=== PATIENT | female | born 1940 | race Caucasian/White ===

== ENCOUNTER 2017-05-27 10:28 | Emergency (ER) | payer MEDICARE, BC ==
[~2017-05-27] VITALS: Ht 162.6 cm; Wt 113.4 kg
[~2017-05-27 10:28] MED LIST: ACCUVITE; ASPIRIN81 M2 PO; CALCIUM 600 +1 EAC1 PO; DIFLUCAN150 MG PO; EVISTA PO; FISH OIL 1,0001 EAC5 PO; FISH OIL 1,001000 MG PO; GARLIC OIL3 MG PO; LEVAQUIN 500 M500 M2 PO; LOTREL 10-20 M1 EACH PO; MSM PO; NEPHROCAPS SOFT1 CAP PO; NORCO 5-325 TA1 EACH PO; NORCO 7.5-3251 EACH; NYSTATIN-TRIAMC15 G1 TP; PLAVIX 75 MG TA75 M1; TURMERIC500 M1 PO; VITAMIN D PO; ZOFRAN 4 MG ORAL4 M1 DIS; ZOFRAN ODT4 MG PO; occuvite PO
[2017-05-27] MEDS ORDERED: TOBRAMYCIN SULFA5 M1 OPHTHALMIC (11:08)
[2017-05-27 11:31] VITALS: BP 154/84
== END 2017-05-27 11:34 | disposition home or self-care (01) ==
LOC: M.ERS 10:28
DX: H10.9 Unspecified conjunctivitis (principal); I10 Essential (primary) hypertension; M41.9 Scoliosis, unspecified; Z86.73 Personal history of transient ischemic attack (TIA), and cerebral infarction without residual deficits; Z87.442 Personal history of urinary calculi; Z90.89 Acquired absence of other organs; Z98.890 Other specified postprocedural states; Z88.6 Allergy status to analgesic agent; Z88.8 Allergy status to other drugs, medicaments and biological substances

== ENCOUNTER → 2017-09-28 | Outpatient (CLI) | payer MEDICARE, BC ==
[~2017-09-28] MED LIST changes: +TOBRAMYCIN SULFA5 M1 OPHTHALMIC
[2017-09-28 11:17] LABS: ABSOLUTE BASOPHILS 0.1 thou/uL (0.0-0.2); ABSOLUTE EOSINOPHILS 0.4 thou/uL (0.0-0.7); ABSOLUTE LYMPHOCYTES 2.4 thou/uL (0.8-5.3); ABSOLUTE MONOCYTES 0.6 thou/uL (0.0-1.2); ABSOLUTE NEUTROPHILS 5.2 thou/uL (1.6-8.1); BASOPHILS 1.5 %; EOSINOPHILS 4.3 %; HEMATOCRIT 41.2 % (37.0-47.0); HEMOGLOBIN 13.6 gm/dL (12.0-15.0); LYMPHOCYTES 27.2 %; MCH 29.2 pg (26.0-34.0); MCHC 33.1 g/dL (28.0-37.0); MCV 88.2 fL (80.0-100.0); MPV 8.4 fl. (7.2-11.1); NUCLEATED RBCS 0 /100WBC; PLATELET COUNT* 172 thou/uL (150-400); RBC 4.67 mil/uL (4.20-5.00); RDW-CV 14.1 % (10.5-14.5); WBC 8.7 thou/uL (4.0-11.0)
[2017-09-28 11:43] LABS: ALBUMIN 3.7 g/dL (3.4-5.0); ALKALINE PHOSPHATASE 70 U/L (46-116); ANION GAP 8 mmol/L (7-16); BUN 19 mg/dL (7-18); CALCIUM 9.3 mg/dL (8.5-10.1); CHLORIDE 102 mmol/L (98-107); CHOLESTEROL 158 mg/dL (<200); CO2 29 mmol/L (21-32); CREATININE 0.7 mg/dL (0.6-1.3); GLUCOSE 100 mg/dL (70-99); HDL CHOLESTEROL 46 mg/dL (>40); LDL CHOLESTEROL 81 mg/dL (<100); POTASSIUM 4.3 mmol/L (3.5-5.1); SGOT 26 U/L (15-37); SGPT 34 U/L (30-65); SODIUM 139 mmol/L (136-145); TC:HDL 3.4 Ratio (Not establshd); TOTAL BILIRUBIN 0.3 mg/dL (<0.1-1.0); TOTAL PROTEIN 7.9 g/dL (6.4-8.2); TRIGLYCERIDE 157 mg/dL (<150); VLDL 31 mg/dL (<40)
[2017-09-28 11:44] LABS: SERUM ASSESSMENT Clear
[2017-09-29 02:07] LABS: GLYCOHEMOGLOBIN (HGB A1C) 5.7 % (4.8-5.6)
== END ==
LOC: M.RAD 10:33
PROVIDERS: Family Medicine
DX: Z12.31 Encounter for screening mammogram for malignant neoplasm of breast (principal); Z00.01 Encounter for general adult medical examination with abnormal findings; I10 Essential (primary) hypertension; M81.0 Age-related osteoporosis without current pathological fracture; I87.329 Chronic venous hypertension (idiopathic) with inflammation of unspecified lower extremity; E55.9 Vitamin D deficiency, unspecified; E04.1 Nontoxic single thyroid nodule; R60.9 Edema, unspecified; K80.00 Calculus of gallbladder with acute cholecystitis without obstruction; Z87.19 Personal history of other diseases of the digestive system; Z90.49 Acquired absence of other specified parts of digestive tract; Z79.899 Other long term (current) drug therapy; R79.9 Abnormal finding of blood chemistry, unspecified; R73.09 Other abnormal glucose

== ENCOUNTER 2020-06-10 06:05 | Inpatient (IN) | payer MEDICARE, BC ==
[~2020-06-10] VITALS: Ht 170.2 cm; Wt 113.4 kg
[~2020-06-10 06:05] MED LIST changes: +TURMERIC 500 M1 EACH PO; -TURMERIC500 M1 PO
[2020-06-10 06:07] VITALS: BP 158/71
[2020-06-10 06:31] LABS: URINE BILIRUBIN NEGATIVE (Negative); URINE BLOOD 3+ (Negative); URINE CLARITY CLEAR; URINE COLOR YELLOW; URINE GLUCOSE-RANDOM NEGATIVE (Negative); URINE KETONES TRACE (Negative); URINE LEUKOCYTES-REFLEX NEGATIVE (Negative); URINE NITRITE-REFLEX NEGATIVE (Negative); URINE PROTEIN NEGATIVE (Negative); URINE SPECIFIC GRAVITY 1.025 (1.005-1.030); URINE UROBILINOGEN 0.2 E.U./dl (0.2-1.0)
[2020-06-10 06:35] LABS: ABSOLUTE BASOPHILS 0.1 thou/uL (0.0-0.2); ABSOLUTE LYMPHOCYTES 1.2 thou/uL (0.8-5.3); ABSOLUTE MONOCYTES 1.1 thou/uL (0.0-1.2); ABSOLUTE NEUTROPHILS 12.8 thou/uL (1.6-8.1); BASOPHILS 0.5 %; EOSINOPHILS 0.2 %; HEMATOCRIT 41.3 % (37.0-47.0); HEMOGLOBIN 13.7 gm/dL (12.0-15.0); LYMPHOCYTES 7.7 %; MCH 28.4 pg (26.0-34.0); MCHC 33.1 g/dL (28.0-37.0); MCV 85.9 fL (80.0-100.0); MONOCYTES 7.5 %; MPV 8.3 fl. (7.2-11.1); NUCLEATED RBCS 0 /100WBC; PLATELET COUNT* 165 thou/uL (150-400); POLYS 84.1 %; RBC 4.81 mil/uL (4.20-5.00); RDW-CV 13.8 % (10.5-14.5); WBC 15.2 thou/uL (4.0-11.0)
[2020-06-10 06:41] LABS: BACTERIA-REFLEX 1-9 Few /HPF (None Seen); CASTS None Seen /LPF (None Seen); CRYSTALS None Seen /LPF (None Seen); MUCUS None Seen strn/LPF (None Seen); SQUAMOUS 0-3 Few /LPF (0-3); URINE WBC-REFLEX 0-5 Rare /HPF (0-5)
[2020-06-10 06:46] LABS: CREATININE 0.9 mg/dL (0.6-1.3); POTASSIUM 4.1 mmol/L (3.5-5.1)
[2020-06-10 06:50] LABS: ALBUMIN 3.4 g/dL (3.4-5.0); TOTAL BILIRUBIN 0.4 mg/dL (<0.1-1.0); TOTAL PROTEIN 7.3 g/dL (6.4-8.2)
--- NOTE | 2020-06-10 10:24 | EKG ---
[place] [address] ELECTROCARDIOGRAM REPORT Name: KIMBERLY JUAREZ Room: [place] [address] ADM IN 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 : 1940 Requested By: Edd Lewis Order Number: [id number] MD: Kyrie Morales Measurements Intervals [place] Rate: 72 P: 50 NM: 182 QRS: -20 QRSD: 156 T: -2 QT: 421 QTc: 461 Interpretive Statements Sinus rhythm Right bundle branch block Compared to ECG 05/16/2016 12:34:07 No significant changes Electronically Signed On 06-10-2020 10:24:23 WRAPPER 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
[2020-06-10 10:55] VITALS: BP 111/56
[2020-06-10 11:12] VITALS: BP 118/56
[2020-06-10] MEDS ORDERED: RESTASIS MULTI5.5 ML EA. EYE (12:32)
[2020-06-10 15:30] VITALS: BP 119/54; BP 131/63
[2020-06-11 03:53] VITALS: BP 109/47
[2020-06-11 08:10] VITALS: BP 117/53
[2020-06-11 10:51] LABS: ABSOLUTE BASOPHILS 0.1 thou/uL (0.0-0.2); ABSOLUTE EOSINOPHILS 0.2 thou/uL (0.0-0.7); ABSOLUTE LYMPHOCYTES 1.3 thou/uL (0.8-5.3); ABSOLUTE MONOCYTES 0.9 thou/uL (0.0-1.2); ABSOLUTE NEUTROPHILS 7.6 thou/uL (1.6-8.1); BASOPHILS 0.6 %; EOSINOPHILS 1.6 %; HEMATOCRIT 37.8 % (37.0-47.0); HEMOGLOBIN 12.3 gm/dL (12.0-15.0); LYMPHOCYTES 12.5 %; MCH 28.3 pg (26.0-34.0); MCHC 32.6 g/dL (28.0-37.0); MONOCYTES 9.2 %; MPV 7.9 fl. (7.2-11.1); NUCLEATED RBCS 0 /100WBC; PLATELET COUNT* 136 thou/uL (150-400); POLYS 76.1 %; RBC 4.34 mil/uL (4.20-5.00); RDW-CV 14.2 % (10.5-14.5)
[2020-06-11 11:03] LABS: ALBUMIN 2.9 g/dL (3.4-5.0); CALCIUM 8.2 mg/dL (8.5-10.1); CREATININE 1.3 mg/dL (0.6-1.3); POTASSIUM 4.3 mmol/L (3.5-5.1); TOTAL BILIRUBIN 0.3 mg/dL (<0.1-1.0); TOTAL PROTEIN 6.4 g/dL (6.4-8.2)
[2020-06-11 16:00] VITALS: BP 114/44
[2020-06-11 21:00] VITALS: BP 145/64
[2020-06-12] VITALS: BP 126/48
[2020-06-12 04:00] VITALS: BP 117/46
[2020-06-12 05:23] LABS: HEMATOCRIT 36.1 % (37.0-47.0); HEMOGLOBIN 11.8 gm/dL (12.0-15.0); MCH 28.5 pg (26.0-34.0); MCHC 32.8 g/dL (28.0-37.0); MCV 87.1 fL (80.0-100.0); MPV 8.6 fl. (7.2-11.1); NUCLEATED RBCS 0 /100WBC; PLATELET COUNT* 136 thou/uL (150-400); RBC 4.14 mil/uL (4.20-5.00); RDW-CV 13.9 % (10.5-14.5); WBC 6.6 thou/uL (4.0-11.0)
[2020-06-12 06:00] LABS: ALBUMIN 2.7 g/dL (3.4-5.0); CALCIUM 8.1 mg/dL (8.5-10.1); CREATININE 0.8 mg/dL (0.6-1.3); POTASSIUM 4.5 mmol/L (3.5-5.1); TOTAL BILIRUBIN 0.3 mg/dL (<0.1-1.0); TOTAL PROTEIN 5.9 g/dL (6.4-8.2)
[2020-06-12 06:29] LABS: ABSOLUTE LYMPHOCYTES 0.6 thou/uL (0.8-5.3); ABSOLUTE MONOCYTES 0.1 thou/uL (0.0-1.2); ABSOLUTE NEUTROPHILS 5.9 thou/uL (1.6-8.1); PLATELET ESTIMATE ADEQUATE
[2020-06-12 08:10] VITALS: BP 130/55
[2020-06-12 11:53] VITALS: BP 118/51
[2020-06-12 20:39] VITALS: BP 155/70
[2020-06-13] VITALS (7 sets, daily range): BP systolic 124–136; BP diastolic 49–59
[2020-06-13 04:56] LABS: CALCIUM 8.6 mg/dL (8.5-10.1); CREATININE 0.8 mg/dL (0.6-1.3)
[2020-06-13 05:16] LABS: ABSOLUTE BASOPHILS 0.1 thou/uL (0.0-0.2); ABSOLUTE EOSINOPHILS 0.2 thou/uL (0.0-0.7); ABSOLUTE LYMPHOCYTES 2.4 thou/uL (0.8-5.3); ABSOLUTE MONOCYTES 0.7 thou/uL (0.0-1.2); ABSOLUTE NEUTROPHILS 5.4 thou/uL (1.6-8.1); BASOPHILS 0.8 %; EOSINOPHILS 2.5 %; HEMATOCRIT 36.6 % (37.0-47.0); HEMOGLOBIN 12.1 gm/dL (12.0-15.0); LYMPHOCYTES 27.1 %; MCH 28.8 pg (26.0-34.0); MCHC 33.1 g/dL (28.0-37.0); MCV 86.9 fL (80.0-100.0); MONOCYTES 7.5 %; MPV 8.4 fl. (7.2-11.1); NUCLEATED RBCS 0 /100WBC; PLATELET COUNT* 155 thou/uL (150-400); POLYS 62.1 %; RBC 4.21 mil/uL (4.20-5.00); WBC 8.7 thou/uL (4.0-11.0)
[2020-06-13] MEDS ORDERED: NORCO5 PO (11:00)
[2020-06-13] MEDS ORDERED: CIPRO250 M2 PO (11:02)
== END 2020-06-13 16:48 | disposition home or self-care (01) | DRG 659 ==
LOC: M.ERS 06:05 → M.3W 09:07 → M.TBA-ER 09:07 → M.3W 11:06
PROVIDERS: Family Medicine; Internal Medicine; ADMIT Internal Medicine; ATTEND Internal Medicine
PROC: BT1F1ZZ Fluoroscopy of Left Kidney, Ureter and Bladder using Low Osmolar Contrast (ICD-10-PCS; principal; 2020-06-11)
PROC: 0T778DZ Dilation of Left Ureter with Intraluminal Device, Via Natural or Artificial Opening Endoscopic (ICD-10-PCS; principal; 2020-06-11)
DX: N13.6 Pyonephrosis (principal); R65.11 Systemic inflammatory response syndrome (SIRS) of non-infectious origin with acute organ dysfunction; N20.2 Calculus of kidney with calculus of ureter; N17.9 Acute kidney failure, unspecified; D72.829 Elevated white blood cell count, unspecified; I10 Essential (primary) hypertension; M41.9 Scoliosis, unspecified; I87.2 Venous insufficiency (chronic) (peripheral); R31.0 Gross hematuria; K57.30 Diverticulosis of large intestine without perforation or abscess without bleeding; Z20.822 Contact with and (suspected) exposure to COVID-19; Z87.442 Personal history of urinary calculi; Z90.49 Acquired absence of other specified parts of digestive tract; Z79.899 Other long term (current) drug therapy; Z79.82 Long term (current) use of aspirin; Z88.5 Allergy status to narcotic agent; Z88.8 Allergy status to other drugs, medicaments and biological substances; Z86.73 Personal history of transient ischemic attack (TIA), and cerebral infarction without residual deficits

== ENCOUNTER → 2020-08-17 | Outpatient (CLI) | payer MEDICARE, BC ==
[~2020-08-17] MED LIST changes: +CIPRO250 M2 PO; +NORCO5 PO; +RESTASIS MULTI5.5 ML EA. EYE
== END ==
LOC: M.ULTRA 08-14 11:00 → M.RAD 08-14 11:30 → M.ULTRA 10:49
PROVIDERS: ATTEND Urology
DX: N20.0 Calculus of kidney (principal); Z87.442 Personal history of urinary calculi

== ENCOUNTER → 2020-10-07 | Outpatient (CLI) | payer MEDICARE, BC | LOC: M.RAD 14:52 | PROVIDERS: ATTEND Nurse Practitioner Family | DX: M25.752 Osteophyte, left hip (principal); M25.552 Pain in left hip ==

== ENCOUNTER → 2020-12-04 | Outpatient (CLI) | payer MEDICARE, BC ==
--- NOTE | 2020-12-26 12:38 | SLEEP ---
[address] [address] SLEEP STUDY REPORT Name: KIMBERLY JUAREZ Room: [facility]#: [id number] Admission: 12/04/20 Attend Phys: Sil Shabazz RN, Discharge: Date of : 44 Report #: [id number] THIS REPORT FOR: cc: Sil Shabazz RN, Janene RN FNP Pervez, Adeel MD ~ DATE OF STUDY: 12/04/2020 SLEEP STUDY INDICATION FOR SLEEP STUDY: Daytime fatigue. INTERPRETATION: Total duration of the study is 401 minutes, out of which she was asleep for 275 minutes with an overall sleep efficiency of 68.5%. Sleep onset initially occurred 14 minutes of lying down in bed and REM onset was 55 minutes after sleep onset. N1 sleep duration is 13%, N2 duration is 65%, N3 duration is 4% and REM duration is 28%. We did record multiple hypopneas during the sleep study. A total of 24 hypopneas were recorded. There were no apneas recorded. There were no respiratory effort related arousals recorded. Overall, apnea-hypopnea index is 5.1. Body position data indicates the patient was lying supine for 94 minutes, the rest of the time the patient was on the right side. Mean heart rate was 67, periodic limb movement index is normal at 0.9. Arousal index was normal at 4.4. O2 saturation is adequately maintained throughout the sleep study. There are occasional premature ventricular contractions recorded from the EKG during this sleep study. Mean heart rate of 77. Events are more common when the patient is lying supine. Supine apnea-hypopnea index is 7.1. IMPRESSION: Mild obstructive sleep apnea with an apnea-hypopnea index of 5.2. O2 saturation is adequately maintained during the sleep study. Events are more common when the patient is lying supine. Supine apnea-hypopnea index is 7.1. RECOMMENDATIONS: Recommend considering positive airway pressure therapy. The use of a CPAP auto titrated device as well as obtaining a repeat sleep study for positive airway pressure titration are both options. Clinical correlation is advised. If clinically appropriate, then recommend weight loss. Based on the clinical picture, observing response to weight loss first as well as the use of a mandibular advancement device would be possible alternate. Recommend avoiding driving and other activities requiring vigilance, [place] [address] SLEEP STUDY REPORT Name: ANNKIMBERLY Room: [facility]#: [id number] Admission: 12/04/20 Attend Phys: Sil Shabazz RN, Discharge: Date of : 44 Report #: [id number] This entire sleep study was reviewed by board certified sleep physician. <ELECTRONICALLY SIGNED> By: Candido Carballo MD 12/26/20 1238 2312 MD bert Comer
== END ==
LOC: M.SLEEPLAB 19:51
PROVIDERS: ATTEND Nurse Practitioner Family
DX: G47.33 Obstructive sleep apnea (adult) (pediatric) (principal)